=== PATIENT | female | born 1990 | race Caucasian/White ===

== ENCOUNTER 2016-11-08 23:19 | Emergency (ER) | payer MEDICAID, OTHER ==
[2016-11-09] MEDS ORDERED: ZOLPIDEM TARTRATE 5 MG TAB PO ONE
--- NOTE | 2016-11-09 05:27 | MB ---
cc: JOSHUA WONG DATE OF CONSULTATION 11/09/2016 HISTORY OF PRESENT ILLNESS Amber is a 25-year-old white female, para 1-0-1-1, who is at 39 weeks, 2 days, by early ultrasound and dates. She presents to the emergency department with regular uterine contractions every 5 minutes. She denies any rupture of membranes or bleeding. The contractions were quite severe on her way in from [place]. They seem to have subsided quite a bit. Her tracing is Category I. She is quite fatigued and just wants one good night's sleep. OBSTETRICAL HISTORY Para 1-0-1-1. She had one , lasted 9 hours, and one SAB. 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 TESTING Her cultures were negative. Her Pap smear was negative in 05/2016. PAST SURGICAL HISTORY Remarkable for tonsillectomy. Augmentation mammoplasty. PAST MEDICAL HISTORY Negative. SOCIAL HISTORY She does not drink, smoke or take drugs. FAMILY HISTORY Negative. ALLERGIES No known drug allergies. MEDICATIONS vitamins one p.o. q. day. REVIEW OF SYSTEMS She denies headaches, scotoma. No shortness of breath. No chest pain. She reports good movement. She was having regular uterine contractions. These have since subsided. No rupture of membranes. No bleeding. PHYSICAL EXAMINATION GENERAL: A well-developed, well-nourished female in no acute distress. CHEST: Clear to auscultation. HEART: Regular rate and rhythm. ABDOMEN: Gravid. The fundus and uterus are nontender. PELVIC EXAM: Her cervix is 2 cm, 70% effaced, vertex. EXTREMITIES: There is no clubbing, cyanosis or edema. No cords or calf tenderness. ASSESSMENT AND PLAN 1. Intrauterine 39 weeks, 2 days. 2. No evidence of labor at this time. She is having some occasional contractions. She is probably in prodromal labor. 3. We will go ahead and give her Ambien, we will send her home and let her get some rest and I will follow her up tomorrow in the clinic. R. MD MALLORY Miguel/MICAH /12:10 AM /5:20 AM
== END 2016-11-09 03:22 | disposition home or self-care (01) ==
LOC: HOBED 23:19
DX: O26.893 Other specified pregnancy related conditions, third trimester (principal); Z3A.39 39 weeks gestation of pregnancy
CPT/HCPCS: 59025

== ENCOUNTER 2016-11-12 11:40 | Inpatient (IN) | payer MEDICAID ==
[~2016-11-12] VITALS: Ht 167.6 cm; Wt 97.5 kg
[2016-11-12] VITALS (43 sets, daily range): BP systolic 86–127; BP diastolic 50–100; PULSE 63–126; RESP 18; TEMP 98.2–98.4
[2016-11-12] MEDS ORDERED: LIDOCAINE HCL 1% 50 ML VIAL INFIL PRN (12:30)
[2016-11-12] MEDS: LACTATED RINGER'S 1000 ML INJ 1,000 ML IV SCH ×2 (12:30→20:30)
[2016-11-12] MEDS ORDERED: MINERAL OIL 10 ML VIAL TOPICAL PRN (12:30)
[2016-11-12] MEDS ORDERED: LACTATED RINGER'S 1000 ML INJ 1,000 ML IV PRN (12:30)
[2016-11-12] MEDS ORDERED: CITRIC ACID-SODIUM CITRATE LIQ 30 ML UDC PO SCH (12:30)
[2016-11-12] MEDS ORDERED: LIDOCAINE HCL 1% 50 ML VIAL I-DERMAL PRN (12:30)
--- NOTE | 2016-11-12 12:38 | HHI.HP ---
HPI Chief Complaint Possibly leakage of fluid and decreased movement Date Seen: Nov 12, 2016 Time Seen: 11:55 Travel History International Travel<30 Days: No Contact w/Intl Traveler<30Days: No Known Affected Area: No History of Present Illness HPI Patient is 25-year-old white female at 39 weeks who presents complaining of possibly leaking fluid. No large amount of fluid lost just increased wetness. Also decreased movement. She has a reactive heart rate tracing. No contractions noted. Denies bleeding. Apt of Dr Elizabeth for care Para: 1 : 2 History Obstetric History Obstetric History 1 vaginal delivery Social History Alcohol Use: No Tobacco Use: No Substance Abuse: No Allergies-Medications (Allergen,Severity, Reaction): Coded Allergies: No Known Allergies (Unverified , 11/09/16) Review of Systems General / Constitutional: No: Fever, Weight Gain, Chills, Other Eyes: No: Diploplia, Blurred Vision, Visual changes, Pain, Photophobia HENT: No: Headaches, Vertigo, Lightheadedness Cardiovascular: No: Irregular Rhythm, Chest Pain or Discomfort, Palpitations, Tachycardia, Syncope, Varicosities, Edema, Cyanosis Respiratory: No: Cough, Short of Breath, Other Gastrointestinal: No: Nausea, Vomiting, Diarrhea Genitourinary: No: Decreased Urinary Output, Oliguria Musculoskeletal: No: Limited ROM, Weakness, Cramping, Edema, Pain Skin: No Rash, No Itching, No Dryness, No Lumps, No Change in Pigmentation, No Change in Nails, No Alopecia, No Lesions Neurologic: No: Weakness, Dizziness, Syncope, Focal Abnormalities, Coordination Problem, Headache, Slurred Speech, Seizures Psychiatric: No: Depression, Suicidal Ideations, Homicidal Ideation Endocrine: No: Heat Intolerance, Cold Intolerance, Polydipsia, Polyuria, Other Physical Exam Narrative GENERAL: Well-nourished, well-developed patient. SKIN: Warm and dry. HEAD: Normocephalic and atraumatic. EYES: No scleral icterus. No injection or drainage. ENT: No nasal drainage noted. Mucous membranes pink. Airway patent. NECK: Supple, trachea midline. No JVD. CARDIOVASCULAR: Regular rate and rhythm without murmurs, gallops, or rubs. RESPIRATORY: Breath sounds equal bilaterally. No accessory muscle use. BREASTS: Bilateral exam showed no masses , no retractions, no nipple discharge. ABDOMEN/GI: Abdomen soft, non-tender, bowel sounds present, no rebound, no guarding Gravid to [-39] weeks size Fundal Height: [-39] GENITOURINARY: External Genitalia: intact and normal in appearance BUS glands: [-] Cervix: [2-] Dilatation: [2-] Effacement: [-50] Station: [-3] Presentation: [-vtx] Membranes: [intact ] amnio sure negative Uterine Contractions: [-none] FHT's: Category: [-1] Baseline: [-144] Reactive: [yes-] Variability: [-mod] Decels: [-none] EXTREMITIES: No cyanosis or edema. BACK: Nontender without obvious deformity. No CVA tenderness. NEUROLOGICAL: Awake and alert. Motor and sensory grossly within normal limits. Five out of 5 muscle strength in all muscle groups. Normal speech. Data Data Labs Amnio sure negative Assessment/Plan Assessment and Plan Patient 24-year-old white female at 39 weeks presents complaining of possible leakage of fluid her amnio sure is negative however. Also decreased movement. She was sent back to see perinatology they did an ultrasound showed an DARIAN of 24 so diagnosed with polyhydramnios, also had an no breathing on her biophysical which was 6 of 8 and with NST 8of 10 and at that point the maternal- medicine team recommended induction, Dr Moise was notified and he agrees with that plan she is to be admitted and Cytotec cervix is 2/50 at this time with induction to follow Santhosh Wang II, MD Nov 12, 2016 12:38
[2016-11-12] MEDS ORDERED: SODIUM CHLOR 0.9% 1000 ML INJ 1,000 ML IV PRN (12:50)
[2016-11-12] MEDS ORDERED: SODIUM CHLORID 0.9% 500 ML INJ 500 ML IV PRN (13:00)
[2016-11-12] MEDS ORDERED: MISOPROSTOL 25 MCG SUPP VAGINAL SCH (13:00)
[2016-11-12] MEDS ORDERED: OXYTOCIN 30 UNITS-500ML PREMIX 500 ML IV ONE (13:00)
[2016-11-12 13:17] LABS: AUTOMATED NEUTROPHIL # 8.7 TH/MM3 (1.8-7.7); BASOPHIL % 0.4 % (0.0-2.0); EOSINOPHIL % 0.1 % (0.0-4.0); HEMATOCRIT 32.2 % (35.0-46.0); LYMPH % 19.9 % (9.0-44.0); LYMPHOCYTE # 2.4 TH/MM3 (1.0-4.8); MEAN CELL VOLUME 74.4 FL (80.0-100.0); MEAN CORPUSCULAR HEMOGLOBIN 24.2 PG (27.0-34.0); MEAN CORPUSCULAR HGB CONC 32.5 % (32.0-36.0); MONO % 7.1 % (0.0-8.0); NEUT % 72.5 % (16.0-70.0); PLATELET COUNT 333 TH/MM3 (150-450); RED BLOOD COUNT 4.32 MIL/MM3 (4.00-5.30); RED CELL DISTRIBUTION WIDTH 14.2 % (11.6-17.2)
[2016-11-12 13:21] LABS: HEMO FLAGS AUTO DIFF
[2016-11-12 13:50] LABS: SCAN/DIFF AUTO DIFF CONFIRMED
[2016-11-12 13:54] LABS: BACTERIA, URINE FEW /hpf; BLOOD, URINE NEG (NEG); COMMENT (UR) CULTURE INDICATED; CULTURE IF INDICATED CULTURE INDICATED; GLUCOSE,URINE NEG (NEG); HYALINE CAST, URINE 1 /lpf (RARE); KETONE, URINE NEG (NEG); MUCUS URINE FEW /lpf (OCC); NITRITE,URINE NEG (NEG); SQUAMOUS EPITHELIAL CELL URINE 17 /hpf (0-5); URINE COLOR YELLOW (YELLW/STRAW)
[2016-11-12] MEDS ORDERED: ePHEDrine/NS 25 MG/5 ML SYR ONE (19:04)
[2016-11-12] MEDS ORDERED: fentaNYL 2MCG-BUPIV 0.125% INJ 100 ML ONE (19:04)
[2016-11-12] MEDS ORDERED: ePHEDrine/NS 25 MG/5 ML SYR IV PRN (20:15)
[2016-11-12] MEDS ORDERED: CALNTAB PO (20:18)
[2016-11-12] MEDS ORDERED: DO NOT ADMINISTER ANTICOAGULANTS XX PRN (21:00)
[2016-11-12] MEDS ORDERED: NO SYSTEM NARCOTICS XX PRN (21:00)
[2016-11-12] MEDS ORDERED: fentaNYL 2MCG-BUPIV 0.125% 100 ML EPIDURAL SCH (21:00)
[2016-11-13] VITALS (51 sets, daily range): BP systolic 85–160; BP diastolic 41–94; PULSE 74–132; RESP 18; TEMP 98.1–98.8
[2016-11-13] MEDS: LACTATED RINGER'S 1000 ML INJ 1,000 ML IV SCH (04:30)
[2016-11-13] MEDS ORDERED: OXYTOCIN 30 UNITS-500ML PREMIX 500 ML ONE (06:04)
--- NOTE | 2016-11-13 08:33 | PD.OB.DELI ---
Delivery Date: Nov 13, 2016 Anesthesia: Epidural Episiotomy: None Vaginal Delivery: Normal Presentation: Occiput anterior, Occiput posterior, Face presentation Nuchal Cord: None Delayed cord clamping (45 sec): Yes : Female One Minute : 9 Five Minute : 9 Weight: 8/2 Infant Care: Suctioned, Spontaneous crying, Responded to stimulation Placenta: Spontaneous delivery, Intact, Uterus explored +, 3 vessel cord Laceration: Perineal laceration, 1 deg, 2 deg Repair: Vicryl running Additional Information Nice delivery of Luis E. Delivered pccuput to the pts left. Also had large 2.3 cm skin tag on left perineum removed sharply and defect closed with 3-0 vicryl in a running fashion,. Dmitri Moise MD Nov 13, 2016 08:33
[2016-11-13] MEDS ORDERED: OXYTOCIN 30 UNITS-500ML PREMIX 500 ML IV ONE (08:45)
[2016-11-13] MEDS ORDERED: BENZOCAINE 20% TOPICAL SPRAY 60 ML CAN TOPICAL PRN (08:45)
[2016-11-13] MEDS ORDERED: ZOLPIDEM TARTRATE 5 MG TAB PO PRN (08:45)
[2016-11-13] MEDS ORDERED: ONDANSETRON ODT 4 MG TAB PO PRN (08:45)
[2016-11-13] MEDS ORDERED: DOCUSATE SODIUM 50 MG/SENNA 8.6 MG TAB PO PRN (08:45)
[2016-11-13] MEDS ORDERED: ACETAMINOPHEN 325 MG TAB PO PRN (08:45)
[2016-11-13] MEDS ORDERED: SODIUM CHLORIDE 0.9% FLUSH 5 ML FLUSH IV PRN (08:45)
[2016-11-13] MEDS ORDERED: ALUMINUM/MAGNESIUM/SIMETH 30 ML CUP PO PRN (08:45)
[2016-11-13] MEDS: IBUPROFEN 600 MG TAB PO PRN ×3 (08:51→17:53)
[2016-11-13] MEDS: WITCH HAZEL 50%/GLYCERIN 12.5% 40 PAD JAR TOPICAL PRN (10:26)
[2016-11-13] MEDS: oxyCODONE/ACETAMINOPHEN 5 MG/325 MG TAB PO PRN ×3 (10:26→18:57)
--- NOTE | 2016-11-13 10:40 | HHI.DCPOC ---
Discharge Care Plan Diagnosis: (1) Normal vaginal delivery Your Health Problems Are: Vaginal delivery Report Symptoms to Your Doctor -Temperate above 100.5 degrees -Redness, of incision or excessive or foul smelling drainage -Unusual pain or calf pain -Increased vaginal bleeding -Painful or difficulty urinating -Feelings of extreme sadness or anxiety after 2 weeks Goals to Promote Your Health * To prevent worsening of your condition and complications * To maintain your health at the optimal level Directions to Meet Your Goals Take your medications as prescribed Follow your dietary instruction Follow activity as directed Ensure plenty of rest for recovery Drink fluids for hydration Keep your appointments as scheduled Take your immunizations and boosters as scheduled If your symptoms worsen call your PCP, if no PCP go to Urgent Care Center or Emergency Room Smoking is Dangerous to Your Health. Avoid second hand smoke Call the 24-hour crisis hotline for domestic abuse at [facility] Nov 13, 2016 10:40
[2016-11-13] MEDS ORDERED: IBUP-232 PO (13:55)
[2016-11-13] MEDS ORDERED: OXYC1TAB63 PO (13:55)
[2016-11-13] MEDS ORDERED: MEASLES, MUMPS, RUBELLA VACCINE 0.5 ML VIAL SQ ONE (16:00)
[2016-11-13] MEDS ORDERED: DIPHTH/TETANUS/ACEL PERTUSSIS (BOOSTER) 0.5 ML VIAL/PFS IM ONE (16:00)
[2016-11-13] MEDS ORDERED: LABETALOL HCL 100 MG/20 ML VIAL OTHER ONE (23:00)
[2016-11-13] MEDS ORDERED: [UNRECOGNIZED DRUG - OTHER] IV ONE (23:00)
[2016-11-13] MEDS ORDERED: MAGNESIUM SULFATE IV ONE (23:00)
[2016-11-14] MEDS: oxyCODONE/ACETAMINOPHEN 5 MG/325 MG TAB PO PRN (04:05)
[2016-11-14] MEDS: IBUPROFEN 600 MG TAB PO PRN ×4 (04:06→22:17)
[2016-11-14 08:00] VITALS: BP 118/74; PULSE 74; RESP 18; TEMP 97.6
[2016-11-14] MEDS: SODIUM CHLORIDE 0.9% FLUSH 5 ML FLUSH IV SCH (09:30)
--- NOTE | 2016-11-14 09:51 | HHI.OB ---
Subjective Post Day: 1 Remarks Doing well nursing well no issues Objective Vitals/I&O Vital Signs Date Time Temp Pulse Resp B/P Pulse Ox O2 Delivery O2 Flow Rate FiO2 11/13/16 19:03 18 11/13/16 16:00 18 11/13/16 10:30 88 18 11/13/16 10:30 98.1 120/71 Objective Remarks GENERAL: Well-nourished, well-developed patient. CARDIOVASCULAR: Regular rate and rhythm without murmurs, gallops, or rubs. RESPIRATORY: Breath sounds equal bilaterally. No accessory muscle use. ABDOMEN/GI: Abdomen soft, non-tender. Fundus: Firm, non-tender at umbilicus. GENITOURINARY: Light to moderate bleeding. EXTREMITIES: No cyanosis or edema, non-tender, without signs of DVT. Medications and IVs Current Medications Medications (Trade) Dose Ordered Sig/Darius Route Start Time Stop Time Status Last Admin (NS Flush) 2 ml BID IV 11/13/16 09:00 (NS Flush) 2 ml UNSCH PRN IV 11/13/16 08:45 (Tylenol) 650 mg Q4H PRN PO 11/13/16 08:45 (Motrin) 600 mg Q6H PRN PO 11/13/16 08:45 11/14/16 09:29 (Percocet 5-325 Mg) 1 tab Q4H PRN PO 11/13/16 08:45 11/13/16 14:49 (Percocet 5-325 Mg) 2 tab Q4H PRN PO 11/13/16 08:45 11/14/16 04:05 (Americaine 20% Top Spr) 1 spray Q4H PRN TOPICAL 11/13/16 08:45 11/13/16 10:26 (Tucks Pads) 1 applic QID PRN TOPICAL 11/13/16 08:45 11/13/16 10:26 (Neha-Colace) 2 tab Q12H PRN PO 11/13/16 08:45 11/14/16 04:06 (Ambien) 5 mg HS PRN PO 11/13/16 08:45 (Mag-Al Plus Susp Liq) 15 ml Q8H PRN PO 11/13/16 08:45 (Zofran Odt) 4 mg Q6H PRN PO 11/13/16 08:45 Assessment/Plan Assessment and Plan unremarkable PPD 1 plan for discharge in am Mercedes Love MD Nov 14, 2016 09:51
[2016-11-15] MEDS: IBUPROFEN 600 MG TAB PO PRN (06:32)
[2016-11-15] MEDS: SODIUM CHLORIDE 0.9% FLUSH 5 ML FLUSH IV SCH (09:00)
[2016-11-15] MEDS: WITCH HAZEL 50%/GLYCERIN 12.5% 40 PAD JAR TOPICAL PRN (09:33)
[2016-11-15] MEDS: oxyCODONE/ACETAMINOPHEN 5 MG/325 MG TAB PO PRN (10:34)
--- NOTE | 2016-11-15 10:53 | HHI.OB ---
Subjective Post Day: 2 Remarks doing well but distraught about baby staying for bilirubin trying to pump Objective Objective Remarks GENERAL: Well-nourished, well-developed patient. CARDIOVASCULAR: Regular rate and rhythm without murmurs, gallops, or rubs. RESPIRATORY: Breath sounds equal bilaterally. No accessory muscle use. ABDOMEN/GI: Abdomen soft, non-tender. Fundus: Firm, non-tender at umbilicus. GENITOURINARY: Light to moderate bleeding. EXTREMITIES: No cyanosis or edema, non-tender, without signs of DVT. Medications and IVs Current Medications Medications (Trade) Dose Ordered Sig/Darius Route Start Time Stop Time Status Last Admin (NS Flush) 2 ml BID IV 11/13/16 09:00 (NS Flush) 2 ml UNSCH PRN IV 11/13/16 08:45 (Tylenol) 650 mg Q4H PRN PO 11/13/16 08:45 11/14/16 13:29 (Motrin) 600 mg Q6H PRN PO 11/13/16 08:45 11/15/16 06:32 (Percocet 5-325 Mg) 1 tab Q4H PRN PO 11/13/16 08:45 11/13/16 14:49 (Percocet 5-325 Mg) 2 tab Q4H PRN PO 11/13/16 08:45 11/15/16 10:34 (Americaine 20% Top Spr) 1 spray Q4H PRN TOPICAL 11/13/16 08:45 11/13/16 10:26 (Tucks Pads) 1 applic QID PRN TOPICAL 11/13/16 08:45 11/15/16 09:33 (Neha-Colace) 2 tab Q12H PRN PO 11/13/16 08:45 11/14/16 04:06 (Ambien) 5 mg HS PRN PO 11/13/16 08:45 11/14/16 22:18 (Mag-Al Plus Susp Liq) 15 ml Q8H PRN PO 11/13/16 08:45 (Zofran Odt) 4 mg Q6H PRN PO 11/13/16 08:45 Assessment/Plan Assessment and Plan unremarkable PPD 2 plan for discharge today Mercedes Love MD Nov 15, 2016 10:53
== END 2016-11-15 13:21 | disposition home or self-care (01) | DRG 989 ==
LOC: HOBED 11:40 → H2EA 12:23 → H1EA 11-13 10:01
PROVIDERS: ADMIT Obstetrics & Gynecology; ATTEND Obstetrics & Gynecology
PROC: 10E0XZZ Delivery of Products of Conception, External Approach (ICD-10-PCS; principal; 2016-11-12)
PROC: 0DBW0ZZ Excision of Peritoneum, Open Approach (ICD-10-PCS; 2016-11-12)
PROC: 0HQ9XZZ Repair Perineum Skin, External Approach (ICD-10-PCS; 2016-11-12)
PROC: 3E0R3CZ (ICD-10-PCS; 2016-11-12)
PROC: 00HU33Z Insertion of Infusion Device into Spinal Canal, Percutaneous Approach (ICD-10-PCS; 2016-11-12)
DX: O36.8130 Decreased fetal movements, third trimester, not applicable or unspecified (principal); O40.3XX0 Polyhydramnios, third trimester, not applicable or unspecified; O90.1 Disruption of perineal obstetric wound; O32.3XX0 Maternal care for face, brow and chin presentation, not applicable or unspecified; O71.5 Other obstetric injury to pelvic organs; O70.0 First degree perineal laceration during delivery; N90.89 Other specified noninflammatory disorders of vulva and perineum; Z37.0 Single live birth; Z3A.39 39 weeks gestation of pregnancy
CPT/HCPCS: 76816; 76818; 81001; 84112; 85025; 86900; 86901; 87086; 88304; 88305; 90707; 90715; 99285; J2590; J3010; J3475; J7120

== ENCOUNTER → 2016-11-12 | Outpatient (CLI) | payer MEDICAID ==
[~2016-11-12] VITALS: Ht 167.6 cm; Wt 97.5 kg
[~2016-11-12] MED LIST: BENZOCAINE 20% TOPICAL SPRAY 60 ML CAN ONE; CALNTAB PO; CITRIC ACID-SODIUM CITRATE LIQ 30 ML UDC PO SCH; IBUP-232 PO; LABETALOL HCL 100 MG/20 ML VIAL ONE; LACTATED RINGER'S 1000 ML INJ 1,000 ML IV PRN; LACTATED RINGER'S 1000 ML INJ 1,000 ML IV SCH; LIDOCAINE HCL 1% 50 ML VIAL I-DERMAL PRN; LIDOCAINE HCL 1% 50 ML VIAL INFIL PRN; LIDOCAINE HCL 1% 50 ML VIAL ONE; MAGNESIUM SULFATE 4 GM PREMIX 100 ML ONE; MAGNESIUM SULFATE 40 GM PREMIX 1,000 ML ONE; MINERAL OIL 10 ML VIAL TOPICAL PRN; MISOPROSTOL 25 MCG SUPP VAGINAL ONE; ONDANSETRON HCL 4 MG/2 ML VIAL ONE; OXYC1TAB63 PO; OXYTOCIN 10 UNIT/ML AMP ONE; OXYTOCIN 30 UNITS-500ML PREMIX 500 ML IV ONE; OXYTOCIN 30 UNITS-500ML PREMIX 500 ML ONE; SODIUM CHLOR 0.9% 1000 ML INJ 1,000 ML IV PRN; SODIUM CHLORID 0.9% 500 ML INJ 500 ML IV PRN; ePHEDrine/NS 25 MG/5 ML SYR ONE; fentaNYL 2MCG-BUPIV 0.125% INJ 100 ML ONE
[2016-11-12 13:21] VITALS: TEMP 97.7
[2016-11-13 20:00] VITALS: BP 121/72; PULSE 78; RESP 20; TEMP 98.1
[2016-11-14 08:00] VITALS: BP 118/77; PULSE 74; RESP 18; TEMP 97.6
[2016-11-14 20:18] VITALS: BP 109/66; PULSE 68; RESP 18; TEMP 97.9
[2016-11-15 09:00] VITALS: BP 117/79; PULSE 64; RESP 18; TEMP 98.2
== END ==
LOC: HPND 10:34 → UNDOADMIN 12:23 → H2EA 12:23
PROVIDERS: ATTEND Obstetrics & Gynecology
DX: O36.8190 Decreased fetal movements, unspecified trimester, not applicable or unspecified (principal)
CPT/HCPCS: 76816; 76818; 84112